=== PATIENT | male | born 2000 | race Caucasian/White ===

== ENCOUNTER 2020-12-02 19:13 | Emergency (ER) | payer OTHER ==
[~2020-12-02] VITALS: Ht 170.2 cm; Wt 56.8 kg
[2020-12-02 19:30] VITALS: BP 132/87
== END 2020-12-02 20:42 | disposition home or self-care (01) ==
LOC: ER 19:14
DX: S92.532A Displaced fracture of distal phalanx of left lesser toe(s), initial encounter for closed fracture (principal); X58.XXXA Exposure to other specified factors, initial encounter; Y93.89 Activity, other specified; Y92.89 Other specified places as the place of occurrence of the external cause; Y99.8 Other external cause status
CPT/HCPCS: 29130; 73660; 99284

== ENCOUNTER 2021-08-05 14:48 | Emergency (ER) | payer SELFPAY ==
[~2021-08-05] VITALS: Ht 170.2 cm; Wt 57.0 kg
[2021-08-05] MEDS ORDERED: levetiracetam inj 1,000 MG in normal saline 100ml IV soln 100 ML IV ONE (16:05)
[2021-08-05] MEDS ORDERED: levetiracetam inj 1,000 MG in normal saline 100ml IV soln 90 ML IV ONE (16:05)
[2021-08-05 17:10] LABS: BASOPHILS % (AUTO) 0.3 % (0-1); EOSINOPHILS % (AUTO) 0.1 % (0-6); HEMATOCRIT 49.2 % (42.0-52.0); HEMOGLOBIN 16.6 g/dl (14.0-17.9); LYMPHOCYTES # (AUTO) 0.5 X10'3 (1.1-4.8); LYMPHOCYTES % (AUTO) 3.2 % (21-51); MEAN CORPUSCULAR HEMOGLOBIN 30.7 PG (27.0-31.0); MEAN CORPUSCULAR HGB CONC 33.8 g/dL (33.0-36.5); MEAN CORPUSCULAR VOLUME 91.1 FL (78-98); MEAN PLATELET VOLUME 8.5 FL (7.4-10.4); MONOCYTES # (AUTO) 0.8 X10'3 (0-0.9); MONOCYTES % (AUTO) 5.1 % (2-12); NEUTROPHILS # (AUTO) 13.4 X10'3 (1.8-7.7); NEUTROPHILS % (AUTO) 91.3 % (42-75); PLATELET COUNT 275 X10'3 (140-440); RED BLOOD COUNT 5.41 X10'6 (4.70-6.10); RED CELL DISTRIBUTION WIDTH 13.1 % (11.5-14.5); WHITE BLOOD COUNT 14.7 X10'3 (4.5-11.0)
[2021-08-05 17:11] VITALS: BP 121/80
[2021-08-05 17:12] LABS: ALANINE AMINOTRANSFERASE 35 U/L (12-78); ALBUMIN 4.8 G/DL (3.4-5.0); ALBUMIN/GLOBULIN RATIO 1.4 (1.1-1.5); ALKALINE PHOSPHATASE 98 IU/L (46-116); ANION GAP 12 (8-16); ASPARTATE AMINO TRANSFERASE 28 U/L (10-37); BILIRUBIN,TOTAL 0.4 MG/DL (0.1-1.0); BLOOD UREA NITROGEN 17 MG/DL (7-18); BUN/CREATININE RATIO 16.7 (5.4-32.0); CALCIUM 9.7 MG/DL (8.5-10.1); CHLORIDE 101 MMOL/L (99-107); CREATININE 1.02 MG/DL (0.60-1.10); GLUCOSE 109 MG/DL (70-104); POTASSIUM 3.7 MMOL/L (3.5-5.1); SODIUM 140 MMOL/L (135-145); TOTAL CARBON DIOXIDE 26.7 MMOL/L (24-32); TOTAL PROTEIN 8.3 G/DL (6.4-8.2); eGFR > 90 ML/MIN
[2021-08-05 17:16] LABS: ETHANOL < 0.010 GM/DL (0.0-0.010)
== END 2021-08-05 18:13 | disposition home or self-care (01) ==
LOC: ER 14:48
DX: G40.909 Epilepsy, unspecified, not intractable, without status epilepticus (principal); R11.0 Nausea
CPT/HCPCS: 36415; 70450; 71045; 80053; 80320; 84484; 85025; 93005; 96365; 99285; J1953; J3490; 96374

== ENCOUNTER 2021-09-03 21:29 | Emergency (ER) | payer BC, SELFPAY ==
[~2021-09-03] VITALS: Ht 167.6 cm; Wt 59.1 kg
--- NOTE | 2021-09-03 21:40 | NUR ---
PT ARRIVED VIA EMS [id number]
--- NOTE | 2021-09-03 21:48 | NUR ---
PT TO CT
[2021-09-03 22:08] LABS: BASOPHILS % (AUTO) 0.3 % (0-1); EOSINOPHILS % (AUTO) 0.6 % (0-6); HEMATOCRIT 42.1 % (42.0-52.0); HEMOGLOBIN 14.7 g/dl (14.0-17.9); LYMPHOCYTES % (AUTO) 13.6 % (21-51); MEAN CORPUSCULAR HEMOGLOBIN 31.1 PG (27.0-31.0); MEAN CORPUSCULAR HGB CONC 34.9 g/dL (33.0-36.5); MEAN CORPUSCULAR VOLUME 88.9 FL (78-98); MEAN PLATELET VOLUME 8.3 FL (7.4-10.4); MONOCYTES # (AUTO) 0.5 X10'3 (0-0.9); MONOCYTES % (AUTO) 7.7 % (2-12); NEUTROPHILS # (AUTO) 5.5 X10'3 (1.8-7.7); NEUTROPHILS % (AUTO) 77.8 % (42-75); PLATELET COUNT 246 X10'3 (140-440); RED BLOOD COUNT 4.73 X10'6 (4.70-6.10); RED CELL DISTRIBUTION WIDTH 13.1 % (11.5-14.5); WHITE BLOOD COUNT 7.1 X10'3 (4.5-11.0)
[2021-09-03 22:19] LABS: ALANINE AMINOTRANSFERASE 33 U/L (12-78); ALBUMIN 4.1 G/DL (3.4-5.0); ALBUMIN/GLOBULIN RATIO 1.3 (1.1-1.5); ALKALINE PHOSPHATASE 96 IU/L (46-116); ANION GAP 11 (8-16); ASPARTATE AMINO TRANSFERASE 23 U/L (10-37); BILIRUBIN,TOTAL 0.2 MG/DL (0.1-1.0); BLOOD UREA NITROGEN 17 MG/DL (7-18); BUN/CREATININE RATIO 17.7 (5.4-32.0); CALCIUM 8.5 MG/DL (8.5-10.1); CHLORIDE 102 MMOL/L (99-107); CREATININE 0.96 MG/DL (0.60-1.10); ETHANOL < 0.010 GM/DL (0.0-0.010); GLUCOSE 96 MG/DL (70-104); MAGNESIUM 2.4 MG/DL (1.5-2.4); POTASSIUM 3.6 MMOL/L (3.5-5.1); SODIUM 137 MMOL/L (135-145); TOTAL CARBON DIOXIDE 24.1 MMOL/L (24-32); TOTAL PROTEIN 7.3 G/DL (6.4-8.2); eGFR > 90 ML/MIN
[2021-09-03] MEDS ORDERED: LEVE10002 PO (22:30)
[2021-09-03] MEDS ORDERED: levetiracetam 250mg tablet PO ONE (22:30)
[2021-09-03 22:59] VITALS: BP 117/74
== END 2021-09-03 23:03 | disposition home or self-care (01) ==
LOC: ER 21:29
DX: R56.9 Unspecified convulsions (principal); R11.0 Nausea; R41.0 Disorientation, unspecified; Z72.89 Other problems related to lifestyle; Z86.69 Personal history of other diseases of the nervous system and sense organs; Z79.899 Other long term (current) drug therapy
CPT/HCPCS: 36415; 70450; 80053; 80320; 83735; 85025; 93005; 99285